=== PATIENT | female | born 1955 | race Caucasian/White ===

== ENCOUNTER 2021-09-11 10:24 | Emergency (ER) | payer OTHER ==
[~2021-09-11] VITALS: Ht 167.6 cm; Wt 128.8 kg
[2021-09-11] MEDS ORDERED: ZESTRIL20 MG PO (10:49)
[2021-09-11] MEDS ORDERED: HYDRODIURIL12.5 MG PO (10:50)
[2021-09-11] MEDS ORDERED: BYSTOLIC10 MG PO (10:51)
== END 2021-09-11 15:01 | disposition home or self-care (01) ==
LOC: ER 10:24
DX: Z00.8 Encounter for other general examination (principal); I10 Essential (primary) hypertension